=== PATIENT | male | born 1940 | race Caucasian/White ===

== ENCOUNTER 2021-05-27 09:57 | Emergency (ER) | payer MEDICARE ==
[~2021-05-27] VITALS: Ht 168 cm; Wt 65.7 kg
--- NOTE | 2021-05-27 10:04 | ED Fall/Injury ---
General Stated Complaint: SEIZURE; FALL Source: patient, EMS Exam Limitations: no limitations History of Present Illness Date Seen by Provider: May 27, 2021 Time Seen by Provider: 10:00 Initial Comments 81-year-old male with past medical history of CAD with stenting, HLD, dementia, CKD, and hypertension [place] after the patient had a witnessed fall hitting his head and had a seizure like episode afterwards lasting roughly 20 to 30 seconds. Upon EMS arrival, he was alert and oriented and was not postictal just shortly after his seizure-like episode ended. His glucose was 160. Blood pressure was around 220 systolic. He did take his blood pressure medications this morning. He denies ever having a seizure in the past. EMS reports significant hematoma to the right side of his head with a small abrasion as well that is hemostatic. He was complaining of a mild constant throbbing headache as well as neck pain so EMS placed a c-collar. The patient denied any chest pain prior to the event, palpitations, or any preceding symptoms. He says he was standing up and the next thing he knew he woke up on the ground. He denies episodes like this in the past. He is otherwise denying any other acute complaints. came later and added to the history that he takes Plavix. Allergies and Home Medications Allergies Coded Allergies: amoxicillin (Verified Allergy, Unknown, 05/27/21) clavulanic acid (Verified Allergy, Unknown, 05/27/21) lisinopril (Verified Allergy, Unknown, 05/27/21) niacin (Verified Allergy, Unknown, 05/27/21) procaine (Verified Allergy, Unknown, 05/27/21) morphine (Verified Adverse Reaction, Unknown, 05/27/21) Patient Home Medication List Home Medication List Reviewed: Yes Review of Systems Review of Systems Constitutional: No chills, No fever Eyes: Denies Blurred Vision Ears, Nose, Mouth, Throat: no symptoms reported Respiratory: No cough, No short of breath Cardiovascular: No chest pain Gastrointestinal: No abdominal pain, No constipation, No nausea, No vomiting Genitourinary: no symptoms reported Musculoskeletal: no symptoms reported Skin: no symptoms reported Psychiatric/Neurological: Headache All Other Systems Reviewed Negative Unless Noted: Yes Past Tyqifyw-Dwgpfh-Kieaaz Hx Patient Social History Tobacco Use?: Yes Alcohol Use?: No Past Medical History Surgeries: Yes Orthopedic (shoulder surger) Physical Exam Vital Signs Vital Signs - First Documented 05/27/21 09:57 Temp 36.6 Pulse 52 Resp 16 B/P (MAP) 190/64 (106) Pulse Ox 99 O2 Delivery Room Air Capillary Refill : Height, Weight, BMI Height: '" Weight: lbs. oz. kg; BMI Method: General Appearance: WD/WN, no apparent distress HEENT: PERRL/EOMI, normal ENT inspection, pharynx normal, other (hematoma to the right orthodox with small abrasion over it) Neck: non-tender, supple, normal inspection, other (c collar in place) Cardiovascular: regular rate, rhythm, no edema, no murmur Respiratory: chest non-tender, lungs clear, normal breath sounds, no respiratory distress, no accessory muscle use Gastrointestinal: normal bowel sounds, non tender, soft; No distended, No guarding, No rebound Back: normal inspection, no CVA tenderness, no vertebral tenderness Extremities: normal range of motion, non-tender, normal inspection, no pedal edema, no calf tenderness, normal capillary refill Neurologic/Psychiatric: veneer taping machine offbearer II-XII nml as tested, no motor/sensory deficits, alert, normal mood/affect, oriented x 3 Skin: normal color, warm/dry Lymphatic: no adenopathy Berhane Coma Score Best Eye Response: (4) Open Spontaneously Best Verbal Response: (5) Oriented Best Motor Response: (6) Obeys Commands Progress/Results/Core Measures Results/Orders Lab Results Laboratory Tests Test 05/27/21 10:08 Range/Units White Blood Count 8.1 4.3-11.0 10^3/uL Red Blood Count 5.12 4.30-5.52 10^6/uL Hemoglobin 15.2 13.3-17.7 g/dL Hematocrit 45 40-54 % Mean Corpuscular Volume 89 80-99 fL Mean Corpuscular Hemoglobin 30 25-34 pg Mean Corpuscular Hemoglobin Concent 34 32-36 g/dL Red Cell Distribution Width 12.5 10.0-14.5 % Platelet Count 143 130-400 10^3/uL Mean Platelet Volume 10.2 9.0-12.2 fL Neutrophils (%) (Auto) 74 42-75 % Lymphocytes (%) (Auto) 16 12-44 % Monocytes (%) (Auto) 7 0-12 % Eosinophils (%) (Auto) 2 0-10 % Basophils (%) (Auto) 1 0-10 % Neutrophils # (Auto) 6.1 1.8-7.8 X 10^3 Lymphocytes # (Auto) 1.3 1.0-4.0 X 10^3 Monocytes # (Auto) 0.6 0.0-1.0 X 10^3 Eosinophils # (Auto) 0.1 0.0-0.3 10^3/uL Basophils # (Auto) 0.1 0.0-0.1 10^3/uL Prothrombin Time 12.8 12.2-14.7 SEC INR Comment 0.9 0.8-1.4 Activated Partial Thromboplast Time 25 24-35 SEC Sodium Level 137 135-145 MMOL/L Potassium Level 4.7 3.6-5.0 MMOL/L Chloride Level 103 98-107 MMOL/L Carbon Dioxide Level 22 21-32 MMOL/L Anion Gap 12 5-14 MMOL/L Blood Urea Nitrogen 22 H 7-18 MG/DL Creatinine 1.86 H 0.60-1.30 MG/DL Estimat Glomerular Filtration Rate 35 BUN/Creatinine Ratio 12 Glucose Level 185 H 70-105 MG/DL Calcium Level 8.7 8.5-10.1 MG/DL Corrected Calcium 8.7 8.5-10.1 MG/DL Total Bilirubin 0.4 0.1-1.0 MG/DL Aspartate Amino Transf (AST/SGOT) 16 5-34 U/L Alanine Aminotransferase (ALT/SGPT) 10 0-55 U/L Alkaline Phosphatase 84 40-136 U/L Troponin I < 0.30 <0.30 NG/ML Pro-B-Type Natriuretic Peptide 833.6 H <75.0 PG/ML Total Protein 6.4 6.4-8.2 GM/DL Albumin 4.0 3.2-4.5 GM/DL My Orders Orders - BRENDAN BOOKER MD Ct Head/Cervical Spine Wo (05/27/21 10:04) Cbc With Automated Diff (05/27/21 10:04) Comprehensive Metabolic Panel (05/27/21 10:04) Protime With Inr (05/27/21 10:04) Partial Thromboplastin Time (05/27/21 10:04) Ua Culture If Indicated (05/27/21 10:04) Probnp Fs (05/27/21 10:04) Troponin I Fs (05/27/21 10:04) Ed Iv/Invasive Line Start (05/27/21 10:04) Ekg Tracing (05/27/21 10:04) Monitor-Rhythm Ecg Trace Only (05/27/21 10:04) Chest 1 View Ap/Pa Only (05/27/21 10:04) Acetaminophen Tablet (Tylenol Tablet) (05/27/21 10:15) Dipht,Pertuss(Acell),Tet Adult (Boostrix (05/27/21 10:15) Medications Given in ED Current Medications Medications Dose Ordered Sig/Kyung Route Start Time Stop Time Status Last Admin Dose Admin Acetaminophen 1,000 mg ONCE ONCE PO 05/27/21 10:15 05/27/21 10:16 DC 05/27/21 10:35 1,000 MG Diphtheria/ Tetanus/Acell Pertussis 0.5 ml ONCE ONCE IM 05/27/21 10:15 05/27/21 10:16 DC 05/27/21 10:40 0.5 ML Vital Signs/I&O 05/27/21 09:57 Temp 36.6 Pulse 52 Resp 16 B/P (MAP) 190/64 (106) Pulse Ox 99 O2 Delivery Room Air Progress Progress Note : Progress Note 81-year-old male with above history coming in after a fall from questionable syncope versus some other etiology with questionable seizure-like activity after wards but was not postictal afterwards. GCS 15 on arrival here, glucose was just 160. Vitals show that he is hypertensive but not as bad as he was for EMS with first pressure here 190/64. Heart rate is sinus in the 50s with a left bundle branch block. CT head and cervical spine negative for any acute abnormalities. Chest x-ray also clear. Electrolytes normal, kidney function is his baseline per his . She says his GFR is typically around 30 which she is in the 30s today. Most importantly, the patient continues to be at his baseline and has been since his entire stay in the emergency department. I have a very low suspicion that he actually had a seizure, and likely had some myoclonic jerks after he hit his head hard. So could have been a syncopal episode and the only abnormal thing of his heart rate is a little low, which once again his says is not unusual for him. I recommended he follow-up with his marketing and development coordinator in [place] rapidly due to the bradycardia, and they may want to place a pacemaker at some point because he probably has sick sinus syndrome. The lowest his heart rate got was around 48 in the ED, but most of the time he was in the 50s. This entire time he was actually slightly hypertensive and he was never symptomatic with his bradycardia, so I believe he is stable for discharge with outpatient follow-up. He was sent home with strict return precautions. Initial ECG Impression Date: May 27, 2021 Initial ECG Impression Time: 10:05 Initial ECG Rate: 53 Initial ECG Rhythm: S.Yobani Comment Wide QRS with a left bundle branch block, normal axis, no STEMI by [place] criteria Diagnostic Imaging Diagonstic Imaging: Xray (chest), CT (head and cspine) Comments NAME: EUGENIO MONTEJO MED REC#: [id number] PT STATUS: REG ER : 1940 PHYSICIAN: BRENDAN BOOKER MD ADMIT DATE: 05/27/21/ER FS Draft Date of Exam:05/27/21 CHEST 1 VIEW AP/PA ONLY INDICATION: Fall and seizure. TIME OF EXAM: 10:29 AM No prior studies are available for comparison. FINDINGS: The heart size is normal. The pulmonary vascularity is unremarkable. The lungs are clear. No infiltrate, effusion or pneumothorax is detected. IMPRESSION: No acute cardiopulmonary process is detected. Dictated on workstation # [id number] Dict: 05/27/21 1036 Trans: 05/27/21 1037 CV [id number] Interpreted by: CHRISTOPHER ROBLEDO MD Electronically signed by: Departure Impression Primary Impression: Syncope Qualified Codes: R55 - Syncope and collapse Additional Impression: Concussion Qualified Codes: S06.0X1A - Concussion with loss of consciousness of 30 minutes or less, initial encounter Disposition: 01 HOME, SELF-CARE Condition: Stable Departure-Patient Inst. Decision time for Depature: 11:11 Patient Instructions: Concussion, Adult (DC), Fainting, Adult ED Add. Discharge Instructions: You are seen in the emergency department after you passed out and hit your head. The CT of your head and cervical spine were normal without any findings that were concerning. Your labs were also normal, and your kidney function is at your baseline. Your cardiac marker (troponin) was normal. Please follow-up with your marketing and development coordinator in [place] given your heart rate is low to see if they want to do anything about this. If you develop any chest pain, shortness of breath, severe headache, begin getting very confused, or you have any other concerns and please call your doctor or come back to the ER. BRENDAN BOOKER MD May 27, 2021 10:04
[2021-05-27] MEDS ORDERED: ACETAMINOPHEN 500 MG TAB (TYLENOL) PO ONE (10:15)
[2021-05-27] MEDS ORDERED: TETANUS,DIPTH,PERTUSS P/F (BOOSTRIX) 0.5 ML VIAL IM ONE (10:15)
[2021-05-27 10:35] LABS: INR 0.9 (0.8-1.4); PROTHROMBIN TIME PATIENT 12.8 SEC (12.2-14.7)
[2021-05-27 10:36] LABS: HEMOGLOBIN 15.2 g/dL (13.3-17.7); MEAN CORPUSCULAR HEMOGLOBIN 30 pg (25-34); WHITE BLOOD COUNT 8.1 10^3/uL (4.3-11.0)
[2021-05-27 10:37] LABS: BASOPHILS # (AUTO) 0.1 10^3/uL (0.0-0.1); BASOPHILS % (AUTO) 1 % (0-10); EOSINOPHILS # (AUTO) 0.1 10^3/uL (0.0-0.3); EOSINOPHILS % (AUTO) 2 % (0-10); HEMATOCRIT 45 % (40-54); LYMPHOCYTES # (AUTO) 1.3 X 10^3 (1.0-4.0); LYMPHOCYTES % (AUTO) 16 % (12-44); MEAN CORPUSCULAR HGB CONC 34 g/dL (32-36); MEAN CORPUSCULAR VOLUME 89 fL (80-99); MEAN PLATELET VOLUME 10.2 fL (9.0-12.2); MONOCYTES # (AUTO) 0.6 X 10^3 (0.0-1.0); MONOCYTES % (AUTO) 7 % (0-12); NEUTROPHILS # (AUTO) 6.1 X 10^3 (1.8-7.8); NEUTROPHILS % (AUTO) 74 % (42-75); PLATELET COUNT 143 10^3/uL (130-400)
--- NOTE | 2021-05-27 10:38 | Diagnostic Imaging Report ---
INDICATION: Fall and seizure. TIME OF EXAM: 10:29 AM No prior studies are available for comparison. FINDINGS: The heart size is normal. The pulmonary vascularity is unremarkable. The lungs are clear. No infiltrate, effusion or pneumothorax is detected. IMPRESSION: No acute cardiopulmonary process is detected. Dictated by: Dictated on workstation # [id number]
--- NOTE | 2021-05-27 10:42 | Diagnostic Imaging Report ---
PROCEDURE: CT head and CT cervical spine without contrast. TECHNIQUE: Multiple contiguous axial images were obtained through the brain and cervical spine without the use of intravenous contrast. Sagittal and coronal reformations through the cervical spine were then performed. Auto Exposure Controls were utilized during the CT exam to meet ALARA standards for radiation dose reduction. INDICATION: Fall with head and neck injury. COMPARISON: No prior studies available for comparison. FINDINGS: CT HEAD: There is hematoma in the right frontal scalp. Ventricles and sulci are appropriate for the patient's age. No sulcal effacement or midline shift is identified. No acute intra-axial or extra-axial hemorrhage is detected. Cisterns are patent. Visualized paranasal sinuses are clear. IMPRESSION: Right frontal scalp hematoma. No acute intracranial process is detected. CT CERVICAL SPINE: Curvature and alignment of the cervical spine is normal. There is multilevel degenerative disc and facet disease. No fractures are identified. Prevertebral tissues are within normal limits. Odontoid is intact. IMPRESSION: Cervical spondylosis. No acute bony abnormality is detected. Dictated by: Dictated on workstation # [id number]
[2021-05-27 10:56] LABS: BUN/CREATININE RATIO 12; CARBON DIOXIDE 22 MMOL/L (21-32); CHLORIDE 103 MMOL/L (98-107); CREATININE SERUM 1.86 MG/DL (0.60-1.30); GFR ESTIMATED 35; POTASSIUM 4.7 MMOL/L (3.6-5.0); SODIUM 137 MMOL/L (135-145)
[2021-05-27 10:57] LABS: ALANINE AMINOTRANSFERASE 10 U/L (0-55); ALKALINE PHOSPHATASE 84 U/L (40-136); BILIRUBIN,TOTAL 0.4 MG/DL (0.1-1.0); CALCIUM 8.7 MG/DL (8.5-10.1); GLUCOSE 185 MG/DL (70-105); TOTAL PROTEIN 6.4 GM/DL (6.4-8.2)
[2021-05-27 11:15] VITALS: BP 164/60
== END 2021-05-27 11:15 | disposition home or self-care (01) ==
LOC: ER FS 09:58
DX: S06.0X9A Concussion with loss of consciousness of unspecified duration, initial encounter (principal); S00.83XA Contusion of other part of head, initial encounter; F03.90 Unspecified dementia, unspecified severity, without behavioral disturbance, psychotic disturbance, mood disturbance, and anxiety; I10 Essential (primary) hypertension; Z72.0 Tobacco use; Z23 Encounter for immunization; Z79.01 Long term (current) use of anticoagulants; W22.8XXA Striking against or struck by other objects, initial encounter
CPT/HCPCS: 36415; 70450; 71045; 72125; 80053; 83880; 84484; 85025; 85610; 85730; 90715; 93005; 93041